=== PATIENT | female | born 1950 | race Caucasian/White ===

== ENCOUNTER → 2017-01-01 | Outpatient (CLI) | payer OTHER ==
--- NOTE | 2017-01-01 15:34 | DIAGNOSTIC IMAGING REPORT ---
PROCEDURE: CT HEAD WITHOUT CONTRAST INDICATION: FREQUENT FALLS TECHNIQUE: Axial CT images were acquired through the head. Coronal and sagittal reformations were created. COMPARISON: 09/24/2009 and brain MR 11/17/2010 FINDINGS: Minor cerebral cortical atrophy. No intracranial hemorrhage or extraaxial fluid collections. Ventricles are normal in size, shape and position. There is no mass, mass effect or midline shift. The ochoa-white matter differentiation is normal. There is no edema. Minor calcific atherosclerosis of the intracranial internal carotid arteries. Interval left temporal craniotomy interval of partially calcified left temporal fossa mass. No evidence of residual or recurrent tumor. There is complete opacification of the left mastoid cavity but without loss of trabeculation. There is also fluid in the middle ear cavity. The other paranasal sinuses and right mastoid air cells are normally aerated. Non-united posterior C1 ring. The extracranial soft tissues and orbits are normal. IMPRESSION: 1. No CT evidence of acute intracranial process. 2. Interval left temporal craniotomy and removal of meningioma without residual or recurrent tumor. 3. Left mastoid and middle ear effusion. 4. Findings discussed with GARY Olea at [address] scans at this facility use dose modulation, iterative reconstruction, and/or weight-based dosing when appropriate to reduce radiation dose to as low as reasonably achievable.
== END ==
LOC: CT SRH 14:47
DX: R29.6 Repeated falls (principal); H74.12 Adhesive left middle ear disease; Z86.011 Personal history of benign neoplasm of the brain